=== PATIENT | male | born 2000 | race Hispanic/Latino ===

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

== ENCOUNTER 2020-04-29 20:06 | Emergency (ER) | payer OTHER, SELFPAY ==
--- NOTE | 2020-04-29 21:16 | CT ---
CT BRAIN NONCONTRAST: DATE: 04/29/2020 HISTORY: 19-year-old male status post acute head trauma from fall due to syncope FINDINGS: There is no evidence of acute intra-axial or extra-axial hemorrhage. There is no midline shift or any other mass effect. There is no extra-axial fluid collection. The ventricles are normal in size and configuration. The tympanomastoid cavities, and the upper portions of the paranasal sinuses included in these images, are grossly clear. Calvarium is intact. IMPRESSION: Normal.
--- NOTE | 2020-04-29 22:05 | RAD ---
RADIOGRAPH CHEST 1 VIEW: DATE: 04/29/2020 HISTORY: 19-year-old male status post acute chest trauma due to fall due to syncope FINDINGS: The visualized lung morris are clear. The cardiomediastinal silhouette and hilar shadows are normal. The lateral costophrenic angles are sharp. The osseous structures appear normal. There is no pneumothorax. IMPRESSION: Negative.
--- NOTE | 2020-05-01 17:14 | EKG ---
Test Reason : Blood Pressure : / mmHG Vent. Rate : 083 BPM Atrial Rate : 083 BPM P-R Int : 118 ms QRS Dur : 084 ms QT Int : 336 ms P-R-T Axes : 071 087 065 degrees QTc Int : 394 ms Normal sinus rhythm Normal ECG Confirmed by JODI LIPSCOMB DO ([id number]), avid editor MARLYS AVILES ([id number] on 05/01/2020 5:13:29 PM Referred By: Confirmed By:JODI LIPSCOMB DO
== END 2020-04-29 22:19 | disposition home or self-care (01) ==
LOC: ERS 20:06
DX: R55 Syncope and collapse (principal); S01.01XA Laceration without foreign body of scalp, initial encounter; W10.9XXA Fall (on) (from) unspecified stairs and steps, initial encounter
CPT/HCPCS: 12001; 70450; 71045; 93005